=== PATIENT | male | born 1980 | race Caucasian/White ===

== ENCOUNTER 2016-12-15 18:39 | Emergency (ER) | payer SELFPAY ==
[~2016-12-15] VITALS: Ht 177.8 cm; Wt 61.2 kg
[~2016-12-15 18:39] MED LIST: ALBUTEROL17 GM INH; BACITRACIN15 GM TP; NO MEDICATIONS; PHENERGAN DM PO; PHENERGAN DM1 ML PO; PREDNISONE PO; ROBAXIN PO; ROBITUSSIN PE PO; TYLENOL #3 PO; ZITHROMAX PO; ZOVIRAX PO
== END 2016-12-15 19:35 | disposition home or self-care (01) ==
LOC: CFTX 18:39 → CED 18:39 → CFTX 19:32
DX: L03.116 Cellulitis of left lower limb (principal); Z88.0 Allergy status to penicillin; F17.210 Nicotine dependence, cigarettes, uncomplicated
CPT/HCPCS: 99281